=== PATIENT | male | born 1965 ===

== ENCOUNTER 2020-09-07 03:09 | Emergency (ER) | payer OTHER, BC ==
[~2020-09-07] VITALS: Ht 193 cm; Wt 124.7 kg
[~2020-09-07 03:09] MED LIST: ALLO100 PO; COLC.6 PO; HYDACE5 PO; INDO50 PO; OXYACE5T PO
[2020-09-07] MEDS ORDERED: COLCHICINE0.6 MG PO (04:47)
[2020-09-07] MEDS ORDERED: Prednisone50 MG PO (04:47)
== END 2020-09-07 05:28 | disposition home or self-care (01) ==
LOC: ER 03:09
DX: M25.562 Pain in left knee (principal); Z87.39 Personal history of other diseases of the musculoskeletal system and connective tissue; Z88.6 Allergy status to analgesic agent; Z79.899 Other long term (current) drug therapy; Z87.891 Personal history of nicotine dependence
CPT/HCPCS: 73562-LT; 96372; 99283-25; A9270; J1885; J7512